=== PATIENT | male | born 1975 | race Caucasian/White ===

== ENCOUNTER 2016-10-23 22:45 | Emergency (ER) | payer SELFPAY ==
[2016-10-23 22:55] VITALS: BP 156/98
--- NOTE | 2016-10-23 23:02 | EDM.PDOC ---
ED HPI Trauma - General Chief Complaint: Upper Extremity Injury/Pain Stated Complaint: INFECTED RING FINGER RIGHT HAND Time Seen by Provider: 10/23/16 23:02 - History of Present Illness INITIAL COMMENTS - FREE TEXT/NARRATIVE: 41-year-old male presents to the emergency room with an infected ring finger on the right side. This is been going on for several days now. He's had some irritation to the area for longer than this. The patient has extremely dry skin on his hands most likely from work exposures. Patient denies any fevers or chills he has not had any redness streaking up his finger or hand. The patient has had some drainage on and off the last couple of days. Since his fingers been acting up he's noticed a metallic flavor in his mouth. This will need to be evaluated if this does not get better with treatment of his finger. Allergies/ADRs: Allergies No Known Allergies Allergy (Verified 08/19/14 13:04) Home Medications: Ambulatory Orders Escitalopram [Lexapro] 20 mg PO DAILY 10/23/16 [Confirmed 10/23/16] Social & Family History - Tobacco Use Smoking Status *Q: Current Every Day Smoker Years of Tobacco use: 20 - Alcohol Use Days Per Week of Alcohol Use: 3 Number of Drinks Per Day: 4 Total Drinks Per Week: 12 - Recreational Drug Use Recreational Drug Use: No Review of Systems - Review of Systems Review Of Systems: See Below Constitutional: Reports: no symptoms Respiratory: Reports: no symptoms Cardiovascular: Reports: no symptoms GI/Abdominal: Reports: No symptoms Trauma Exam - Physical Exam Exam: See Below Exam Limited By: No limitations General Appearance: Reports: alert, no apparent distress Respiratory Exam: Reports: no respiratory distress, lungs clear Cardiovascular: Reports: regular rate, rhythm, no edema, no murmur Extremities: Reports: other (examination of the patient's right hand shows a slightly swollen area over the proximal nail fold of the right ring finger. This extends more down the ulnar surface in the medial surface but he has bilateral involvement interestingly he does not have a lot of tenderness over the distal end of the nail plate along the sides he has a fissure on the lateral aspect and he's had drainage from this area. There is no drainage at this time.) Course - Vital Signs Last Recorded V/S: Last Vital Signs Temp 36.7 C 10/23/16 22:52 Pulse 90 10/23/16 22:52 Resp 16 10/23/16 22:52 BP 156/98 H 10/23/16 22:52 Pulse Ox 99 10/23/16 22:52 - Re-Assessments/Exams Free Text/Narrative Re-Assessment/Exam: 10/23/16 23:35 examination of his finger shows some irritation and inflammation most likely due to the surrounding dry skin he has a fissure over the proximal nail plate and has had drainage from this area. Palpation along the lateral nail grooves does not elicit any specific discomfort thus I&D not performed. No fluctuant areas noted at this time. Departure - Departure Time of Disposition: 23:29 Disposition: Home, Self-Care 01 Clinical Impression: Paronychia of finger of right hand Referrals: PCP,None [Primary Care Provider] - Forms: ED Department Discharge Additional Instructions: Return to the emergency room with any questions or problems or if not improving in a couple of days. Followup in the clinic early next week. Followup for your finger and for the metallic taste in her mouth if this does not improve. [phone] Soak her finger in warm Epsom salts solution every 2 hours while awake. After soaking her finger apply Eucerin cream to your hands. This is a good moisturizer and should be continued. You've been started on doxycycline, this is an antibiotic, 100 mg #14. Take one twice daily for a week.
[2016-10-23] MEDS ORDERED: Doxycycline 100 MG Cap PO ONE (23:47)
== END 2016-10-23 23:40 | disposition home or self-care (01) ==
LOC: JD.ED 22:45
DX: L03.011 Cellulitis of right finger (principal); F17.200 Nicotine dependence, unspecified, uncomplicated; Z79.899 Other long term (current) drug therapy
CPT/HCPCS: 99283; A9270